=== PATIENT | female | born 1940 | race Caucasian/White ===

== ENCOUNTER 2018-06-25 08:45 | Inpatient (IN) | payer OTHER ==
[2018-06-25] MEDS: CEFAZOLIN 2 GM/50 ML (PMX) 50 ML IVPB (06:00)
[2018-06-25] MEDS: TRANEXAMIC ACID 1,000 MG in NS 100 ML PRE-OP X1 IVPB (06:00)
[2018-06-25] MEDS: TRANEXAMIC ACID 1,000 MG in NS 100 ML INTRA-OP X1 IVPB (06:00)
[2018-06-25] MEDS: LACTATED RINGER'S 1,000 ML IV* (06:00)
[2018-06-25] MEDS ORDERED: DEXAMETHASONE 4 MG/ML 1 ML INJ (08:50)
[2018-06-25] MEDS ORDERED: CEFAZOLIN 1 GM INJ (08:50)
[2018-06-25] MEDS ORDERED: MIDAZOLAM 1 MG/ML 2 ML INJ (08:50)
[2018-06-25] MEDS ORDERED: GLYCOPYRROLATE 0.4 MG INJ (08:50)
[2018-06-25] MEDS ORDERED: ONDANSETRON 4 MG INJ (08:50)
[2018-06-25] MEDS ORDERED: FENTAnyl 50 MCG/ML VIAL (08:50)
[2018-06-25] MEDS ORDERED: NEOSTIGMINE 3 MG/3 ML SYRINGE (08:50)
[2018-06-25] MEDS ORDERED: ROCURONIUM 50 MG INJ (08:50)
[2018-06-25] MEDS ORDERED: PROPOFOL 20 ML (08:50)
[2018-06-25] MEDS ORDERED: BUPIVACAINE 0.75%/DEXT (SPINAL) 2 ML INJ (08:51)
[2018-06-25] MEDS ORDERED: morphine SULFATE/PF (10 MG/10 ML) INJ (08:51)
[2018-06-25] MEDS ORDERED: ROPIVACAINE 0.5 % 30 ML VIAL (08:52)
[2018-06-25] MEDS ORDERED: MAGNESIUM HYDROXIDE 30ML CUP PO (10:00)
[2018-06-25] MEDS ORDERED: DIPHENHYDRAMINE 50 MG INJ IV ×2 (10:00→11:00)
[2018-06-25] MEDS ORDERED: oxyCODONE 5 MG TAB PO (10:00)
[2018-06-25] MEDS ORDERED: BISACODYL 10 MG SUPP PR (10:00)
[2018-06-25] MEDS ORDERED: NA PHOSPHATE/BIPHOS 133 ML ENEMA PR (10:00)
[2018-06-25] MEDS ORDERED: NALOXONE (0.4 MG/ML) INJ IV ×2 (10:00→11:00)
[2018-06-25] MEDS ORDERED: SENNA/DOCUSATE NA (8.6MG/50MG) TAB PO (10:00)
[2018-06-25] MEDS ORDERED: BETHANECHOL 25 MG TAB PO (10:00)
[2018-06-25] MEDS: POLYMYXIN B 500000 UNIT INJ (10:48)
[2018-06-25] MEDS: BACITRACIN 50000 UNITS INJ (10:48)
[2018-06-25] MEDS ORDERED: LABETALOL HCL 20MG INJ IV (11:00)
[2018-06-25] MEDS ORDERED: ONDANSETRON 4 MG INJ IV (11:00)
[2018-06-25] MEDS ORDERED: HYDROmorphONE 1 MG/5 ML IV SYRINGE IV ×3 (11:00)
[2018-06-25] MEDS ORDERED: EPHEDrine SULFATE 50 MG/5 ML SYG IV (11:00)
[2018-06-25] MEDS ORDERED: IPRATROPIUM (NEB) 0.5 MG/2.5 ML AMP HHN (11:00)
[2018-06-25] MEDS ORDERED: FENTAnyl 50 MCG/ML VIAL IV ×3 (11:00)
[2018-06-25] MEDS ORDERED: MIDAZOLAM 1 MG/ML 2 ML INJ IV (11:00)
[2018-06-25] MEDS ORDERED: TRIMETHOBENZAMIDE 100 MG/ML VIAL IM (11:00)
[2018-06-25] MEDS ORDERED: MEPERIDINE 25 MG INJ IV (11:00)
[2018-06-25] MEDS ORDERED: ALBUTEROL 0.083% (NEB) 2.5 MG/3 ML AMP HHN (11:00)
[2018-06-25] MEDS ORDERED: hydrALAzine 20 MG INJ IV (11:00)
[2018-06-25] MEDS ORDERED: CEFAZOLIN 1 GM/50 ML (PMX) 50 ML IVPB (12:15)
[2018-06-25] MEDS: CEFAZOLIN 1 GM/50 ML (PMX) 50 ML IVPB (12:18)
[2018-06-25] MEDS: DOCUSATE SODIUM 100 MG CAP PO (12:18)
[2018-06-25] MEDS: ASPIRIN (EC) 325 MG TAB PO (12:18)
[2018-06-25] MEDS: ONDANSETRON 4 MG INJ IV ×3 (13:51→23:13)
[2018-06-25] MEDS: SOD CHLORIDE 0.9% 1,000 ML IV ×2 (13:58→22:19)
[2018-06-25] MEDS: CELECOXIB 100 MG CAP PO (21:00)
[2018-06-25] MEDS: CALCIUM/VITAMIN D (500/200) TAB PO (22:45)
[2018-06-26] MEDS: CEFAZOLIN 1 GM/50 ML (PMX) 50 ML IVPB ×2 (02:05→10:54)
[2018-06-26] MEDS: SOD CHLORIDE 0.9% 1,000 ML IV ×2 (02:06→10:49)
[2018-06-26] MEDS: ONDANSETRON 4 MG INJ IV (04:00)
[2018-06-26 05:50] LABS: ADD MAN DIFF? NO
[2018-06-26 05:54] LABS: ABNORMAL IP MESSAGE 1; BASOPHILS % 0.1 % (0.0-2.0); HEMATOCRIT 33.2 % (37.0-47.0); LYMPHOCYTES # 0.6 10^3/ul (0.8-2.9); MEAN CORPUSCULAR HEMOGLOBIN 33.5 pg (29.0-33.0); MEAN CORPUSCULAR HGB CONC 33.1 g/dl (32.0-37.0); MEAN CORPUSCULAR VOLUME 101.2 fl (82.0-101.0); MEAN PLATELET VOLUME 10.9 fl (7.4-10.4); MONOCYTE # 0.8 10^3/ul (0.3-0.9); MONOCYTES % 8.5 % (0.0-11.0); NEUTROPHIL # 7.8 10^3/ul (1.6-7.5); NEUTROPHILS % 84.9 % (39.0-77.0); PLATELET COUNT 157 10^3/UL (140-415); RED BLOOD COUNT 3.28 10^6/ul (4.20-5.40); RED CELL DISTRIBUTION WIDTH 12.2 % (11.5-14.5)
[2018-06-26 05:54] LABS: WHITE BLOOD COUNT 9.2 10^3/ul (4.8-10.8)
[2018-06-26 06:05] LABS: HEMOGLOBIN A1C 5.4 % (0-5.9)
[2018-06-26 06:09] LABS: CHOL/HDL RATIO 2.5 RATIO; HDL CHOLESTEROL 51 mg/dl (33-92); LDL CHOLESTEROL,CALCULATED 60 mg/dl; TRIGLYCERIDES 93 mg/dl (0-149)
[2018-06-26 06:09] LABS: CHOLESTEROL 130 mg/dl (100-200)
[2018-06-26 06:10] LABS: POSITIVE DIFF @See below
[2018-06-26 06:23] LABS: ANION GAP 8 (8-16); BLOOD UREA NITROGEN 16 mg/dl (7-20); CARBON DIOXIDE 29 mmol/L (21-31); CHLORIDE 106 mmol/L (97-110); CREATININE 0.58 mg/dl (0.44-1.00); GLUCOSE 126 mg/dl (70-220); POTASSIUM 5.4 mmol/L (3.5-5.1); SODIUM 138 mmol/L (135-144)
[2018-06-26 06:40] LABS: THYROID STIMULATING HORMONE 0.437 MIU/L (0.465-4.680)
[2018-06-26] MEDS ORDERED: LOSARTAN 50 MG TAB PO (09:00)
[2018-06-26] MEDS: DOCUSATE SODIUM 100 MG CAP PO (09:34)
[2018-06-26] MEDS: CALCIUM/VITAMIN D (500/200) TAB PO (09:35)
[2018-06-26] MEDS: ASPIRIN (EC) 325 MG TAB PO (09:35)
[2018-06-26] MEDS: FISH OIL 1,000 MG CAP PO (09:35)
[2018-06-26] MEDS: FERROUS FUMARATE (SR) TAB PO (09:35)
[2018-06-26] MEDS: GABAPENTIN 100 MG CAP PO (09:36)
[2018-06-26] MEDS: CELECOXIB 100 MG CAP PO (09:36)
[2018-06-26] MEDS: METOPROLOL (XL) 50 MG TAB PO (09:37)
[2018-06-26] MEDS: AMIODARONE 200 MG TAB PO (09:38)
[2018-06-26] MEDS: oxyCODONE 5 MG TAB PO ×4 (09:59→20:02)
[2018-06-26] MEDS: NA POLYST SULFON 15 GM/60 ML BTL PR (10:02)
[2018-06-26 14:09] LABS: FOLATE > 20.0 ng/ml (2.8-20.0)
[2018-06-27] MEDS ORDERED: PANTOPRAZOLE (EC) 40 MG TAB PO (06:00)
[2018-06-29] MEDS ORDERED: ALENDRONATE 70 MG TAB PO (07:00)
== END 2018-06-26 20:00 | DRG 470 ==
LOC: REC 08:45 → MS1 13:20
PROVIDERS: Orthopaedic Surgery
PROC: 0SRD0JA Replacement of Left Knee Joint with Synthetic Substitute, Uncemented, Open Approach (ICD-10-PCS; principal; 2018-06-25 10:05)
DX: M17.12 Unilateral primary osteoarthritis, left knee (principal); I10 Essential (primary) hypertension; E78.5 Hyperlipidemia, unspecified
CPT/HCPCS: 73560; 80048; 80061; 82607; 82746; 83036; 84443; 85025; 86850; 86900; 86901; 88304; 88311; 97116; 97161; 97166; 97530; 97535